=== PATIENT | female | born 1985 | race Hispanic/Latino ===

== ENCOUNTER 2021-11-26 06:34 | Observation (INO) | payer MEDICAID ==
[2021-11-24] MEDS: CEFAZOLIN SODIUM 2 GM VIAL IV SCH (07:00)
[2021-11-24 08:45] VITALS: BP 135/71
[2021-11-24 09:11] LABS: BASOPHILS % (AUTO) 0.3 % (0.0-5.0); EOSINOPHILS % (AUTO) 0.6 % (0.0-8.0); HEMATOCRIT 29.1 % (36-48); LYMPHOCYTES % (AUTO) 16.3 % (21.0-51.0); MEAN CORPUSCULAR HEMOGLOBIN 30.2 pg (27.0-33.0); MEAN CORPUSCULAR HGB CONC 33.7 g/dL (32.0-36.0); MEAN CORPUSCULAR VOLUME 89.8 fL (79-99); MONOCYTES % (AUTO) 3.1 % (3.0-13.0); NEUTROPHILS % (AUTO) 79.1 % (40.0-77.0); PLATELET COUNT (AUTO) 175 K/uL (130-400); RED BLOOD CELL COUNT(AUTO) 3.24 MIL/uL (4.00-5.50); RED CELL DISTRIBUTION WIDTH 13.3 % (11.0-15.5); WHITE BLOOD COUNT (AUTO) 6.7 K/uL (4.8-10.8)
[2021-11-25] MEDS: CEFAZOLIN SODIUM 2 GM VIAL IV SCH (10:20)
[~2021-11-26] VITALS: Ht 165.1 cm; Wt 93.1 kg
[~2021-11-26 06:34] MED LIST: PNV91TAB3 PO
[2021-11-26 07:10] VITALS: BP 114/69
[2021-11-26] MEDS ORDERED: LACTATED RINGERS 1000ML 1,000 ML IV ONE (07:13)
[2021-11-26] MEDS ORDERED: CEFAZOLIN SODIUM 1 GM VIAL ONE (07:14)
[2021-11-26] MEDS ORDERED: MAGNESIUM 4GM PREMIX 100ML 100 ML IV SCH (09:30)
[2021-11-26] MEDS ORDERED: MAGNESIUM SULFATE 40GM/1000ML 1,000 ML IV PRN (09:30)
[2021-11-26] MEDS ORDERED: CALCIUM GLUC 1GM/10ML VIAL IV PRN (09:30)
[2021-11-26] MEDS ORDERED: GLYCOPYRROLATE 1 MG/5 ML SYRINGE ONE (10:35)
== END 2021-11-27 11:00 | disposition home or self-care (01) ==
LOC: DAH 06:34 → LDH 06:35
PROVIDERS: ADMIT Obstetrics & Gynecology; ATTEND Obstetrics & Gynecology
DX: O34.32 Maternal care for cervical incompetence, second trimester (principal); O99.212 Obesity complicating pregnancy, second trimester; Z3A.19 19 weeks gestation of pregnancy
CPT/HCPCS: 36415; 59320; 84703; 85025; 86850; 86900; 86901; 87635; 96365; 96366 ×2; 96375; A4215; A4221; A4222; A4223; A4663; A6260; C9803; G0378 ×25; G0379; J0690; J3475 ×2; J3490; J7120 ×2

== ENCOUNTER 2022-06-10 06:24 | Day surgery (SDC) | payer MEDICAID ==
[2022-06-07 16:09] LABS: BASOPHILS % (AUTO) 0.3 % (0.0-5.0); EOSINOPHILS % (AUTO) 1.2 % (0.0-8.0); HEMATOCRIT 34.6 % (36-48); MEAN CORPUSCULAR HEMOGLOBIN 28.3 pg (27.0-33.0); MEAN CORPUSCULAR HGB CONC 32.7 g/dL (32.0-36.0); MEAN CORPUSCULAR VOLUME 86.7 fL (79-99); MONOCYTES % (AUTO) 6.6 % (3.0-13.0); NEUTROPHILS % (AUTO) 60.4 % (40.0-77.0); PLATELET COUNT (AUTO) 212 K/uL (130-400); RED BLOOD CELL COUNT(AUTO) 3.99 MIL/uL (4.00-5.50); RED CELL DISTRIBUTION WIDTH 14.6 % (11.0-15.5); WHITE BLOOD COUNT (AUTO) 5.9 K/uL (4.8-10.8)
[2022-06-09 08:43] VITALS: BP 119/69
[2022-06-10] VITALS (18 sets, daily range): BP systolic 104–120; BP diastolic 55–88
[~2022-06-10] VITALS: Ht 165.1 cm; Wt 93.0 kg
[~2022-06-10 06:24] MED LIST changes: +CEFAZOLIN SODIUM 1 GM VIAL IVP SCH
[2022-06-10] MEDS ORDERED: LACTATED RINGERS 1000ML 1,000 ML IV ONE (06:33)
[2022-06-10] MEDS ORDERED: FENTANYL CITRATE PF 50 MCG/1 ML 2ML VIAL ONE (07:15)
[2022-06-10] MEDS ORDERED: PROPOFOL 10 MG/ML 20ML VIAL IV ONE (07:15)
[2022-06-10] MEDS ORDERED: MIDAZOLAM HCL 1 MG/ML 2ML VIAL ONE (07:15)
[2022-06-10] MEDS ORDERED: SUCCINYLCHOLINE CHLORIDE 20 MG/ML 10 ML VIAL ONE (07:16)
[2022-06-10] MEDS ORDERED: ROCURONIUM 10MG/1ML SYR 10 MG/ML ML ONE (07:17)
[2022-06-10] MEDS ORDERED: ONDANSETRON 4MG INJ ONE ×3 (07:17→10:06)
[2022-06-10] MEDS ORDERED: LIDOCAINE PF 100MG/5ML (2%) SYRINGE 5ML ONE (07:18)
[2022-06-10] MEDS ORDERED: BUPIVACAINE/PF 0.25% 30ML VIAL IJ ONE (07:21)
[2022-06-10] MEDS ORDERED: PHENYLEPHRINE HCL 10 MG/ML 1ML VIAL IV ONE (07:52)
[2022-06-10] MEDS ORDERED: NEOSTIGMINE 5MG/5ML SYR IV ONE (07:55)
[2022-06-10] MEDS ORDERED: GLYCOPYRROLATE 1 MG/5 ML SYRINGE ONE (07:55)
[2022-06-10] MEDS ORDERED: CEFAZOLIN SODIUM 2 GM VIAL IV ONE (08:05)
[2022-06-10] MEDS ORDERED: KETOROLAC 30MG VIAL (30MG/ML) ONE (08:44)
[2022-06-10] MEDS ORDERED: MEPERIDINE-PF 25 MG/ML SYG ONE (09:03)
== END 2022-06-10 11:00 | disposition home or self-care (01) ==
LOC: DAH 06:24
PROVIDERS: ATTEND Obstetrics & Gynecology
DX: Z30.2 Encounter for sterilization (principal); N81.4 Uterovaginal prolapse, unspecified; E66.9 Obesity, unspecified; Z79.01 Long term (current) use of anticoagulants; Z98.891 History of uterine scar from previous surgery
CPT/HCPCS: 84703; 85025; 86850 ×2; 86900 ×2; 86901 ×2; 87426; 36415 ×2; 58670; A6260; A4351; A4606; J0690 ×2; J7120; J3010; J3490 ×3; J2710; J0330; S0020; J2250; J2405 ×3; J1885; J2175; J2370; C1769 ×3; G0168; A4215 ×2; A4223; A4222; A4221; A4663; A4600; A4510; J2001; J2704

== ENCOUNTER 2022-07-03 20:55 | Emergency (ER) | payer MEDICAID ==
[~2022-07-03] VITALS: Ht 165.1 cm; Wt 92.5 kg
[~2022-07-03 20:55] MED LIST changes: -CEFAZOLIN SODIUM 1 GM VIAL IVP SCH
[2022-07-03] MEDS ORDERED: IBUPROFEN 800 MG TAB PO ONE (21:30)
[2022-07-03] MEDS ORDERED: IBUP-2071 PO (21:53)
[2022-07-03 22:09] VITALS: BP 125/74
== END 2022-07-03 22:12 | disposition home or self-care (01) ==
LOC: EDH 20:55
DX: S83.005A Unspecified dislocation of left patella, initial encounter (principal); Z79.1 Long term (current) use of non-steroidal anti-inflammatories (NSAID); X58.XXXA Exposure to other specified factors, initial encounter; Y93.89 Activity, other specified; Y92.89 Other specified places as the place of occurrence of the external cause; Y99.8 Other external cause status
CPT/HCPCS: 73562